=== PATIENT | female | born 1990 | race Caucasian/White ===

== ENCOUNTER → 2017-09-09 | Outpatient (CLI) | payer OTHER ==
[2017-09-09 18:09] LABS: BASO % 0.3 % (0.0-1.0); EOS # 0.3 10^3/uL (0.0-0.50); EOS % 3.1 % (0.0-3.0); HEMOGLOBIN 12.7 g/dl (12.0-16.0); IMMATURE GRANULOCYTE % 0.3 % (0-3.0); LYMPH # 2.7 10^3/uL (1.5-6.5); LYMPH % 28.2 % (24.0-44.0); MEAN CORPUSCULAR HEMOGLOBIN 30.7 pg (27.0-33.0); MEAN CORPUSCULAR HGB CONC 33.4 g/dl (32.0-36.5); MEAN CORPUSCULAR VOLUME 91.8 fl (80.0-96.0); MONO # 0.7 10^3/uL (0.0-0.8); MONO % 7.6 % (0.0-5.0); NEUTROPHILS # 5.7 10^3/uL (1.8-7.7); NEUTROPHILS % 60.5 % (36.0-66.0); PLATELET COUNT, AUTOMATED 268 10^3/uL (150-450); RED BLOOD COUNT 4.14 10^6/uL (4.00-5.40); RED CELL DISTRIBUTION WIDTH 13.5 % (11.5-14.5); WHITE BLOOD COUNT 9.5 10^3/uL (4.0-10.0)
[2017-09-09 18:38] LABS: ALT/SGPT 17 U/L (12-78); AST/SGOT 7 U/L (7-37); BILIRUBIN,TOTAL 0.2 MG/DL (0.2-1.0); CREATININE FOR GFR 0.57 MG/DL (0.55-1.30); GLOMERULAR FILTRATION RATE > 60.0 (>60); LDH LACTATE DEHYDROGENASE 145 U/L (84-246); TOTAL PROTEIN,RANDOM URINE 12.1 MG/DL (0.0-12.0); URIC ACID 4.2 MG/DL (2.6-6.0)
[2017-09-09 20:10] LABS: CHLAMYDIA DNA AMPLIFICATION NEGATIVE (NEGATIVE); GC DNA AMPLIFICATION NEGATIVE (NEGATIVE)
[2017-09-11 10:22] LABS: RUBELLA IgG QUALITATIVE IMMUNE (IMMUNE)
[2017-09-11 10:40] LABS: HBsAg Prenatal NEGATIVE (NEGATIVE)
[2017-09-11 10:51] LABS: HEPATITIS C VIRUS ABY INDEX < 0.0 INDEX (<0.8)
[2017-09-11 10:52] LABS: HIV 1&2 SCREEN CENTAUR NEGATIVE (NEGATIVE)
== END ==
LOC: M WUC 15:26
DX: Z36.89 Encounter for other specified antenatal screening (principal); Z3A.10 10 weeks gestation of pregnancy
CPT/HCPCS: 84460

== ENCOUNTER → 2017-11-05 | Outpatient (CLI) | payer OTHER | LOC: M SMT 12:58 | DX: Z34.82 Encounter for supervision of other normal pregnancy, second trimester (principal); Z36.89 Encounter for other specified antenatal screening; Z3A.18 18 weeks gestation of pregnancy | CPT/HCPCS: 76811 ==

== ENCOUNTER → 2017-11-30 | Outpatient (CLI) | payer OTHER | LOC: M SMT 14:26 | DX: Z34.82 Encounter for supervision of other normal pregnancy, second trimester (principal); Z3A.21 21 weeks gestation of pregnancy | CPT/HCPCS: 76816 ==

== ENCOUNTER → 2018-01-01 | Outpatient (CLI) | payer OTHER ==
[2018-01-01 17:18] LABS: HEMATOCRIT 33.8 % (36.0-47.0); HEMOGLOBIN 11.1 g/dl (12.0-15.5); MEAN CORPUSCULAR HEMOGLOBIN 31.3 pg (27.0-33.0); MEAN CORPUSCULAR HGB CONC 32.8 g/dl (32.0-36.5); MEAN CORPUSCULAR VOLUME 95.2 fl (80.0-96.0); PLATELET COUNT, AUTOMATED 258 10^3/uL (150-450); RED BLOOD COUNT 3.55 10^6/uL (4.00-5.40); RED CELL DISTRIBUTION WIDTH 13.8 % (11.5-14.5); WHITE BLOOD COUNT 13.3 10^3/uL (4.0-10.0)
[2018-01-01 17:28] LABS: GLUCOSE CHALLENGE TEST 1 HOUR 110 MG/DL (LESS THAN 140)
== END ==
LOC: M WUC 14:38
DX: Z34.82 Encounter for supervision of other normal pregnancy, second trimester (principal); Z36.89 Encounter for other specified antenatal screening
CPT/HCPCS: 82950

== ENCOUNTER 2018-02-08 13:04 | Inpatient (IN) | payer OTHER ==
[2018-02-08] MEDS: BETAMETHASONE SOLUSPAN 6MG/ML INJ 5ML (J0702) IM (15:03)
[2018-02-08] MEDS: AZITHROMYCIN 250 MG TAB PO (15:03)
[2018-02-08] MEDS: AMPICILLIN SOD 2 GM in D5W MINI-BAG PLUS 100 ML IV ×2 (15:26→20:00)
[2018-02-08 15:41] LABS: HEMATOCRIT 35.8 % (36.0-47.0); MEAN CORPUSCULAR HEMOGLOBIN 31.1 pg (27.0-33.0); MEAN CORPUSCULAR HGB CONC 33.5 g/dl (32.0-36.5); MEAN CORPUSCULAR VOLUME 92.7 fl (80.0-96.0); PLATELET COUNT, AUTOMATED 230 10^3/uL (150-450); RED BLOOD COUNT 3.86 10^6/uL (4.00-5.40); RED CELL DISTRIBUTION WIDTH 13.7 % (11.5-14.5); WHITE BLOOD COUNT 12.2 10^3/uL (4.0-10.0)
[2018-02-08] MEDS: LACTATED RINGER'S 1000 ML IV (18:18)
[2018-02-08] MEDS ORDERED: LR 1,000 ML IV (19:00)
[2018-02-09] MEDS: AMPICILLIN SOD 2 GM in D5W MINI-BAG PLUS 100 ML IV ×4 (02:00→19:52)
[2018-02-09] MEDS: BETAMETHASONE SOLUSPAN 6MG/ML INJ 5ML (J0702) IM (14:40)
[2018-02-09] MEDS: LR 1,000 ML IV (21:30)
[2018-02-10] MEDS: AMPICILLIN SOD 2 GM in D5W MINI-BAG PLUS 100 ML IV ×2 (01:36→08:03)
[2018-02-10] MEDS: PRENATAL VITAMINS CHEWABLE TABLET PO (08:03)
[2018-02-10] MEDS: AMOXICILLIN 500 MG CAP PO ×2 (14:03→22:10)
[2018-02-11] MEDS: AMOXICILLIN 500 MG CAP PO ×3 (05:45→21:31)
[2018-02-11] MEDS: PRENATAL VITAMINS CHEWABLE TABLET PO (08:48)
[2018-02-12] MEDS: AMOXICILLIN 500 MG CAP PO ×3 (05:48→21:51)
[2018-02-12] MEDS: PRENATAL VITAMINS CHEWABLE TABLET PO (08:57)
[2018-02-12] MEDS ORDERED: SLF 3 ML SYR IV (19:15)
[2018-02-12] MEDS: SLF 3 ML SYR IV (21:52)
[2018-02-13] MEDS: SLF 3 ML SYR IV ×2 (05:02→14:00)
[2018-02-13] MEDS: AMOXICILLIN 500 MG CAP PO ×3 (05:02→21:11)
[2018-02-13] MEDS: PRENATAL VITAMINS CHEWABLE TABLET PO (08:19)
[2018-02-14] MEDS: AMOXICILLIN 500 MG CAP PO ×4 (05:31→21:49)
[2018-02-14] MEDS: PRENATAL VITAMINS CHEWABLE TABLET PO (08:50)
[2018-02-15] MEDS: AMOXICILLIN 500 MG CAP PO ×3 (05:40→22:33)
[2018-02-15] MEDS: PRENATAL VITAMINS CHEWABLE TABLET PO (09:00)
[2018-02-16] MEDS: AMOXICILLIN 500 MG CAP PO ×3 (05:51→22:06)
[2018-02-16] MEDS: PRENATAL VITAMINS CHEWABLE TABLET PO (08:33)
[2018-02-17] MEDS: BUTORPHANOL 2 MG/ML INJ (J0595) IV (00:26)
[2018-02-17] MEDS: PROMETHAZINE INJ 25 MG/ML VIAL (J2550) IV (00:26)
[2018-02-17] MEDS: AMOXICILLIN 500 MG CAP PO ×2 (05:25→14:54)
[2018-02-17] MEDS: PRENATAL VITAMINS CHEWABLE TABLET PO (08:37)
[2018-02-17] MEDS: DOCUSATE SODIUM 100 MG CAP PO (20:46)
[2018-02-17] MEDS: LR 1,000 ML IV (23:45)
[2018-02-18] MEDS ORDERED: hydrOXYzine 50 MG TAB PO (02:15)
[2018-02-18] MEDS ORDERED: OXYTOCIN 30 UNITS IN 0.9% NaCl 500ML IV BAG (J2590) As Ordered (03:41)
[2018-02-18] MEDS ORDERED: FENTANYL 2MCG/ML ROPIVACAINE 0.2% IN 0.9% NACL 200ML IVBAG As Ordered (03:41)
[2018-02-18 03:59] LABS: HEMATOCRIT 36.2 % (36.0-47.0); HEMOGLOBIN 12.1 g/dl (12.0-15.5); MEAN CORPUSCULAR HEMOGLOBIN 31.1 pg (27.0-33.0); MEAN CORPUSCULAR HGB CONC 33.4 g/dl (32.0-36.5); MEAN CORPUSCULAR VOLUME 93.1 fl (80.0-96.0); PLATELET COUNT, AUTOMATED 248 10^3/uL (150-450); RED BLOOD COUNT 3.89 10^6/uL (4.00-5.40); RED CELL DISTRIBUTION WIDTH 13.8 % (11.5-14.5)
[2018-02-18 04:46] LABS: CORD GAS ABE A -3.9; CORD GAS HCO3 A 24.4 MEQ/L; CORD GAS O2 SAT A 50.8 %; CORD GAS PCO2 A 57.7 mmHg; CORD GAS PH A 7.244 UNITS; CORD GAS SBC A 20.1 MEQ/L; CORD GAS TCO2 A 26.2 MEQ/L
[2018-02-18 04:47] LABS: CORD GAS ABE V -3.5; CORD GAS HCO3 V 22.6 MEQ/L; CORD GAS O2 SAT V 86.9 %; CORD GAS PCO2 V 44.1 mmHg; CORD GAS PH V 7.327 UNITS; CORD GAS PO2 V 42.1 mmHg; CORD GAS SBC V 21.4 MEQ/L; CORD GAS TCO2 V 23.9 MEQ/L
[2018-02-18] MEDS: OXYTOCIN DRIP 30 UNITS in APPROPRIATE DILUENT 1 EA IV (04:53)
[2018-02-18] MEDS ORDERED: ACETAMINOPHEN 500 MG TAB PO (05:00)
[2018-02-18] MEDS ORDERED: ANUSOL HC CREAM 30GM TOP (05:00)
[2018-02-18] MEDS ORDERED: METHYLERGONOVINE MALEATE 0.2 MG TAB PO (05:00)
[2018-02-18] MEDS: LIDOCAINE 1% MDV 20ML VIAL INFIL (05:00)
[2018-02-18] MEDS ORDERED: DIBUCAINE 1% OINTMENT 30GM TOP (05:00)
[2018-02-18] MEDS: IBUPROFEN 800 MG TAB PO (12:09)
[2018-02-18] MEDS: MEASLES,MUMPS,RUBELLA VACCINE INJ (MMR-II) (90707) SC (13:20)
[2018-02-18] MEDS: RHOGAM 300 MCG (1500 IU) INJ (J2790) IM (13:20)
[2018-02-19] MEDS: DOCUSATE SODIUM 100 MG CAP PO ×2 (09:41→21:00)
[2018-02-19] MEDS: PRENATAL VITAMINS CHEWABLE TABLET PO (09:41)
[2018-02-20] MEDS: PRENATAL VITAMINS CHEWABLE TABLET PO (09:08)
[2018-02-20] MEDS: DOCUSATE SODIUM 100 MG CAP PO (09:08)
[2018-02-20] MEDS: ADACEL/BOOSTRIX VACCINE (DIPHTH/PERTUSS/ACELL/TETANUS)0.5ML SYR (90715) IM (11:25)
== END 2018-02-20 11:40 | disposition home or self-care (01) | DRG 775 ==
LOC: M LDO 13:04 → M OBS 02-09 09:51 → M LDI 02-17 23:11 → M OBS 02-18 06:45 → M LDI 13:46
PROVIDERS: Specialist
PROC: 0HQ9XZZ Repair Perineum Skin, External Approach (ICD-10-PCS; 2018-02-17)
PROC: 10E0XZZ Delivery of Products of Conception, External Approach (ICD-10-PCS; principal; 2018-02-18)
DX: O42.113 Preterm premature rupture of membranes, onset of labor more than 24 hours following rupture, third trimester (principal); Z3A.32 32 weeks gestation of pregnancy; O69.82X0 Labor and delivery complicated by other cord entanglement, without compression, not applicable or unspecified; O70.0 First degree perineal laceration during delivery; Z37.0 Single live birth

== ENCOUNTER → 2019-02-21 | Outpatient (REF) | payer OTHER ==
[~2019-02-21] MED LIST: IBUP-1114 PO; MAPA500T2 PO; PRENTAB9 PO
[2019-02-21 19:41] LABS: CHLAMYDIA DNA AMPLIFICATION NEGATIVE (NEGATIVE); GC DNA AMPLIFICATION NEGATIVE (NEGATIVE)
[2019-02-23 14:07] LABS: HPV HYBRID CAPTURE II Negative (Negative)
== END ==
LOC: M LAB REF 16:55
PROVIDERS: ATTEND Family Medicine
DX: Z12.4 Encounter for screening for malignant neoplasm of cervix (principal); Z91.89 Other specified personal risk factors, not elsewhere classified
CPT/HCPCS: 87070; 87077; 87186; 87491; 87591; 87624; G0123

== ENCOUNTER → 2020-07-09 | Outpatient (CLI) | payer SELFPAY | LOC: M LABSMTC 16:30 | PROVIDERS: ATTEND Pediatrics | DX: Z20.828 Contact with and (suspected) exposure to other viral communicable diseases (principal) ==

== ENCOUNTER → 2021-05-24 | Outpatient (CLI) | payer OTHER ==
--- NOTE | 2021-05-24 16:51 | REPVR ---
PROCEDURE INFORMATION: Exam: MR Head Without Contrast Exam date and time: 05/24/2021 2:20 PM Age: 31 years old Clinical indication: Pain; Other: Occular; Additional info: RT occular eye pain, visual disturbance, R/O ms TECHNIQUE: Imaging protocol: MR of the head without contrast. COMPARISON: No relevant prior studies available. FINDINGS: Brain: No acute hemorrhage or acute territorial infarct. For age there are mild diffuse involutional changes in the brain. Scattered foci of T2 and FLAIR hyperintensity most pronounced in the right parietooccipital lobe posteriorly are nonspecific. The classic Charcot pattern for multiple sclerosis is not identified today. Cerebral ventricles: Normal. No ventriculomegaly. Bones/joints: The marrow signal is maintained on the T1 weighted images Paranasal sinuses: Paranasal sinus disease most pronounced in the right maxillary sinus. Mastoid air cells: The mastoids are well aerated. Orbital cavity: The orbits are intact and are evaluated separately today. Soft tissues: Unremarkable. Other vasculature: The expected vascular flow voids are present centrally. Other findings: Limited noncontrast exam. IMPRESSION: 1. No acute abnormality. 2. Mild involutional change and nonspecific scattered T2 and FLAIR hyperintensities in the supratentorial white matter. The patient may benefit from contrast-enhanced imaging. Electronically signed by: Vicente Andrea On 05/24/2021 16:50:53 PM
--- NOTE | 2021-05-24 16:55 | REPVR ---
PROCEDURE INFORMATION: Exam: MR Orbit Without Contrast Exam date and time: 05/24/2021 2:09 PM Age: 31 years old Clinical indication: Eye pain; Bilateral; Additional info: RT occular eye pain, visual disturbance, R/O ms TECHNIQUE: Imaging protocol: MR Orbit was performed without contrast. COMPARISON: No relevant prior studies available. FINDINGS: Orbital cavity: The orbits are intact. No mass in the conal spaces. Paranasal sinuses: Paranasal sinus disease most pronounced in the right maxillary sinus. Brain: The brain is evaluated separately today. Bones/joints: Best seen on the coronal T2 weighted images is mild thickening and increased T2 signal in the optic nerve on the right in comparison to the left. The possibly of optic neuritis might be considered here. Soft tissues: Unremarkable. Other findings: Limited noncontrast exam. IMPRESSION: Findings suggestive of potential optic neuritis on the right in comparison to the left. Contrast-enhanced imaging may prove helpful. Electronically signed by: Vicente Andrea On 05/24/2021 16:55:09 PM
--- NOTE | 2021-05-31 17:23 | REPVR ---
PROCEDURE INFORMATION: Exam: MR Head Without and With Contrast Exam date and time: 05/31/2021 2:38 PM Age: 31 years old Clinical indication: Visual disturbance; Additional info: RT occular eye pain, visual disturbance, R/O ms TECHNIQUE: Imaging protocol: MR of the head without and with intravenous contrast. Contrast material: PROHANCE; Contrast volume: 20 ml; Contrast route: INTRAVENOUS (IV); COMPARISON: MRI-Brain without Contrast 05/24/2021 2:36 PM FINDINGS: Brain: Small scattered nonspecific T2/FLAIR hyperintensities of the periventricular and deep subcortical white matter, two prominent lesions in the right parietal and left frontal periventricular white matter demonstrating prominent enhancement. No intracranial hemorrhage or extra-axial fluid collection. No evidence of mass effect or midline shift. No restricted diffusion to suggest acute infarct. Cerebral ventricles: No ventriculomegaly. Bones/joints: Unremarkable. Mastoid air cells: No mastoid effusion. Soft tissues: Unremarkable. IMPRESSION: Small scattered nonspecific T2/FLAIR hyperintensities of the periventricular and deep subcortical white matter, two prominent lesions in the right parietal and left frontal periventricular white matter demonstrating prominent enhancement. Overall findings are most concerning for active demyelinating disease such as multiple sclerosis. Recommend neurology consultation. Electronically signed by: Dioni Castellanos On 05/31/2021 17:22:59 PM
--- NOTE | 2021-05-31 17:26 | REPVR ---
PROCEDURE INFORMATION: Exam: MR Orbit Without and With Contrast Exam date and time: 05/31/2021 2:38 PM Age: 31 years old Clinical indication: Other: RT occular eye pain; Additional info: RT occular eye pain, visual disturbance, R/O ms TECHNIQUE: Imaging protocol: MR Orbit was performed without and with contrast. Contrast material: PROHANCE; Contrast volume: 20 ml; Contrast route: INTRAVENOUS (IV); COMPARISON: MRI-Orbits, Face and Neck W/O 05/24/2021 2:36 PM FINDINGS: Orbital cavity: Asymmetric prominent T2 hyperintensities and enhancement involving the right optic nerve, highly concerning for right optic neuritis. Globes are normal. Intraconal and extraconal fat are normal. Extraoccular muscles are normal. Vascular structures are unremarkable. Paranasal sinuses: Unremarkable. No air-fluid levels. Soft tissues: Unremarkable. IMPRESSION: Asymmetric prominent T2 hyperintensities and enhancement involving the right optic nerve, highly concerning for right optic neuritis. Please refer to additional findings performed on concurrent MRI brain which are concerning for demyelinating disease such as multiple sclerosis. Recommend neurology consultation. Electronically signed by: Dioni Castellanos On 05/31/2021 17:25:37 PM
== END ==
LOC: M PLARAD 14:06
PROVIDERS: ATTEND Family Medicine
DX: H57.11 Ocular pain, right eye (principal); H53.8 Other visual disturbances

== ENCOUNTER → 2021-05-31 | Outpatient (CLI) | payer OTHER ==
[~2021-05-31] MED LIST changes: +PROHANCE 279.3MG/ML 15ML VIAL As Ordered ONE; +PROHANCE 279.3MG/ML 5ML VIAL As Ordered ONE
== END ==
LOC: M RAD 12:16
PROVIDERS: ATTEND Family Medicine
DX: H57.11 Ocular pain, right eye (principal); H53.8 Other visual disturbances
CPT/HCPCS: 70543; 70553; A9576

== ENCOUNTER → 2021-08-29 | Outpatient (CLI) | payer OTHER ==
[~2021-08-29] MED LIST changes: -PROHANCE 279.3MG/ML 15ML VIAL As Ordered ONE; -PROHANCE 279.3MG/ML 5ML VIAL As Ordered ONE
== END ==
LOC: M PLAIMG 13:39
PROVIDERS: ATTEND Psychiatry & Neurology Neurology
DX: G35 Multiple sclerosis (principal); Z53.8 Procedure and treatment not carried out for other reasons

== ENCOUNTER → 2021-09-04 | Outpatient (CLI) | payer OTHER ==
[2021-09-04 14:07] LABS: BASO % 0.2 % (0.0-1.0); EOS # 0.1 10^3/uL (0.0-0.5); EOS % 1.2 % (0.0-3.0); HEMATOCRIT 40.4 % (36.0-47.0); HEMOGLOBIN 13.4 g/dl (12.0-15.5); LYMPH # 1.9 10^3/uL (1.5-5.0); LYMPH % 20.3 % (24.0-44.0); MEAN CORPUSCULAR HEMOGLOBIN 30.9 pg (27.0-33.0); MEAN CORPUSCULAR HGB CONC 33.2 g/dl (32.0-36.5); MEAN CORPUSCULAR VOLUME 93.1 fl (80.0-96.0); MONO # 0.6 10^3/uL (0.0-0.8); NEUTROPHILS # 6.8 10^3/uL (1.5-8.5); PLATELET COUNT, AUTOMATED 263 10^3/uL (150-450); RED BLOOD COUNT 4.34 10^6/uL (4.00-5.40); WHITE BLOOD COUNT 9.4 10^3/uL (4.0-10.0)
[2021-09-04 15:26] LABS: GC DNA AMPLIFICATION NEGATIVE (NEGATIVE)
[2021-09-04 15:27] LABS: HEPATITIS C VIRUS ABY INDEX < 0.0 INDEX (<0.8); HIV 1&2 SCREEN CENTAUR NEGATIVE (NEGATIVE)
== END ==
LOC: M PLALAB 09:22
PROVIDERS: ATTEND Obstetrics & Gynecology
DX: Z3A.12 12 weeks gestation of pregnancy (principal)

== ENCOUNTER → 2021-09-24 | Outpatient (CLI) | payer OTHER | LOC: M PLALAB 13:33 | PROVIDERS: ATTEND Specialist | DX: Z34.81 Encounter for supervision of other normal pregnancy, first trimester (principal) ==

== ENCOUNTER 2021-10-04 10:01 | Emergency (ER) | payer OTHER ==
[~2021-10-04] VITALS: Ht 165.1 cm; Wt 105.8 kg
[2021-10-04 11:53] LABS: BASO % 0.2 % (0.0-1.0); EOS # 0.1 10^3/uL (0.0-0.5); EOS % 1.1 % (0.0-3.0); HEMATOCRIT 38.7 % (36.0-47.0); HEMOGLOBIN 12.9 g/dl (12.0-15.5); LYMPH # 1.8 10^3/uL (1.5-5.0); LYMPH % 19.4 % (24.0-44.0); MEAN CORPUSCULAR HEMOGLOBIN 30.6 pg (27.0-33.0); MEAN CORPUSCULAR HGB CONC 33.3 g/dl (32.0-36.5); MEAN CORPUSCULAR VOLUME 91.9 fl (80.0-96.0); MONO # 0.5 10^3/uL (0.0-0.8); MONO % 5.4 % (2.0-8.0); NEUTROPHILS # 6.7 10^3/uL (1.5-8.5); NEUTROPHILS % 73.2 % (36.0-66.0); PLATELET COUNT, AUTOMATED 249 10^3/uL (150-450); RED BLOOD COUNT 4.21 10^6/uL (4.00-5.40); WHITE BLOOD COUNT 9.1 10^3/uL (4.0-10.0)
[2021-10-04 12:15] LABS: BLOOD UREA NITROGEN 7 MG/DL (7-18); CALCIUM LEVEL 9.3 MG/DL (8.5-10.1); CARBON DIOXIDE LEVEL 26 MEQ/L (21-32); CHLORIDE LEVEL 111 MEQ/L (98-107); CREATININE FOR GFR 0.52 MG/DL (0.55-1.30); GLOMERULAR FILTRATION RATE > 60.0 (>60); GLUCOSE, FASTING 88 MG/DL (70-100); SODIUM LEVEL 141 MEQ/L (136-145)
[2021-10-04 14:30] VITALS: BP 123/66
== END 2021-10-04 14:31 | disposition home or self-care (01) ==
LOC: M ED 10:01
DX: S39.011A Strain of muscle, fascia and tendon of abdomen, initial encounter (principal); W00.0XXA Fall on same level due to ice and snow, initial encounter; Y92.89 Other specified places as the place of occurrence of the external cause; Z3A.16 16 weeks gestation of pregnancy; Z88.2 Allergy status to sulfonamides

== ENCOUNTER → 2021-10-24 | Outpatient (CLI) | payer OTHER | LOC: M WHC 14:24 | PROVIDERS: ATTEND Specialist | DX: Z34.82 Encounter for supervision of other normal pregnancy, second trimester (principal) ==

== ENCOUNTER → 2022-01-08 | Outpatient (CLI) | payer OTHER ==
[2022-01-08 13:42] LABS: HEMATOCRIT 36.2 % (36.0-47.0); HEMOGLOBIN 11.7 g/dl (12.0-15.5); MEAN CORPUSCULAR HEMOGLOBIN 31.6 pg (27.0-33.0); MEAN CORPUSCULAR HGB CONC 32.3 g/dl (32.0-36.5); MEAN CORPUSCULAR VOLUME 97.8 fl (80.0-96.0); WHITE BLOOD COUNT 8.9 10^3/uL (4.0-10.0)
[2022-01-08 15:21] LABS: GC DNA AMPLIFICATION NEGATIVE (NEGATIVE)
== END ==
LOC: M PLALAB 09:06
PROVIDERS: ATTEND Specialist
DX: Z36.89 Encounter for other specified antenatal screening (principal)

== ENCOUNTER → 2022-01-13 | Outpatient (CLI) | payer OTHER | LOC: M WHC 12:58 | PROVIDERS: ATTEND Specialist | DX: Z34.82 Encounter for supervision of other normal pregnancy, second trimester (principal) ==

== ENCOUNTER → 2022-01-27 | Outpatient (REF) | payer OTHER | LOC: M SFHCWAGY 12:56 | PROVIDERS: ATTEND Obstetrics & Gynecology | DX: O44.43 Low lying placenta NOS or without hemorrhage, third trimester (principal) ==

== ENCOUNTER → 2022-02-11 | Outpatient (CLI) | payer OTHER | LOC: M WHC 14:50 | PROVIDERS: ATTEND Obstetrics & Gynecology | DX: Z03.72 Encounter for suspected placental problem ruled out (principal); O44.43 Low lying placenta NOS or without hemorrhage, third trimester; Z3A.35 35 weeks gestation of pregnancy ==

== ENCOUNTER → 2022-02-19 | Outpatient (REF) | payer OTHER | LOC: M PLALAB 10:29 | PROVIDERS: ATTEND Obstetrics & Gynecology | DX: Z36.85 Encounter for antenatal screening for Streptococcus B (principal) ==

== ENCOUNTER 2022-03-01 12:33 | Inpatient (IN) | payer OTHER ==
[2022-03-01] VITALS (8 sets, daily range): BP systolic 96–144; BP diastolic 59–88
[~2022-03-01] VITALS: Ht 165.1 cm; Wt 114.7 kg
[2022-03-01] MEDS ORDERED: PRENTAB9 PO (13:03)
[2022-03-01] MEDS ORDERED: TUMS500C PO (13:04)
[2022-03-01] MEDS ORDERED: HOME MED LIST COMPLETE! XX SCH (13:05)
[2022-03-01 16:34] LABS: BASO % 0.2 % (0.0-1.0); EOS # 0.2 10^3/uL (0.0-0.5); HEMATOCRIT 37.2 % (36.0-47.0); HEMOGLOBIN 12.3 g/dl (12.0-15.5); LYMPH # 2.6 10^3/uL (1.5-5.0); LYMPH % 17.8 % (24.0-44.0); MEAN CORPUSCULAR HEMOGLOBIN 30.5 pg (27.0-33.0); MEAN CORPUSCULAR HGB CONC 33.1 g/dl (32.0-36.5); MEAN CORPUSCULAR VOLUME 92.3 fl (80.0-96.0); MONO # 0.7 10^3/uL (0.0-0.8); MONO % 5.1 % (2.0-8.0); NEUTROPHILS # 10.8 10^3/uL (1.5-8.5); NEUTROPHILS % 74.9 % (36.0-66.0); PLATELET COUNT, AUTOMATED 252 10^3/uL (150-450); RED BLOOD COUNT 4.03 10^6/uL (4.00-5.40); WHITE BLOOD COUNT 14.4 10^3/uL (4.0-10.0)
[2022-03-01] MEDS: miSOPROStol 50MCG 1/2 TABLET PO SCH (20:35)
[2022-03-02] VITALS (32 sets, daily range): BP systolic 100–160; BP diastolic 53–90
[2022-03-02] MEDS: miSOPROStol 50MCG 1/2 TABLET PO SCH (00:36)
[2022-03-02] MEDS ORDERED: BUTORPHANOL 2 MG/ML INJ (J0595) IV ONE (01:20)
[2022-03-02] MEDS ORDERED: PROMETHAZINE 25MG/ML 1ML VIAL IV ONE (01:20)
[2022-03-02] MEDS ORDERED: FENTANYL 2MCG/ML ROPIVACAINE 0.2% IN 0.9% NACL 100ML IVBAG As Ordered ONE (02:20)
[2022-03-02] MEDS ORDERED: EPIDURAL/PCA KEYS XX PRN (02:40)
[2022-03-02] MEDS ORDERED: NALOXONE INJ 0.4MG/1ML VIAL (J2310 PER 1MG) IV PRN (02:40)
[2022-03-02] MEDS ORDERED: LR 500 ML IV PRN (02:40)
[2022-03-02] MEDS ORDERED: ONDANSETRON 4MG 2ML VIAL IV PRN (02:40)
[2022-03-02] MEDS ORDERED: diphenhydrAMINE 50MG/ML VIAL (J1200) IV PRN (02:40)
[2022-03-02] MEDS ORDERED: ePHEDrine SULFATE 25 MG/5 ML(5MG/ML) SYRINGE IVP PRN (02:40)
[2022-03-02] MEDS ORDERED: FENTANYL/ROPIVACAINE/NACL BAG 100 ML EPIDURAL SCH ×2 (02:40)
[2022-03-02] MEDS ORDERED: OXYTOCIN DRIP 30 UNITS in IV 1 EA IV SCH ×2 (03:00→04:30)
[2022-03-02] MEDS ORDERED: ACETAMINOPHEN TAB 650MG DOSE (2X325MG) PO PRN (04:30)
[2022-03-02] MEDS ORDERED: METHYLERGONOVINE MALEATE 0.2 MG TAB PO PRN (04:30)
[2022-03-02] MEDS ORDERED: DIBUCAINE 1% OINTMENT 30GM TOP PRN (04:30)
[2022-03-02] MEDS ORDERED: IBUPROFEN 600MG TAB PO PRN (04:30)
[2022-03-02] MEDS ORDERED: RHOGAM 300 MCG (1500 IU) INJ (J2790) IM SCH (04:30)
[2022-03-02] MEDS ORDERED: ACETAMINOPHEN 500 MG TAB PO PRN (04:30)
[2022-03-02 04:44] LABS: CORD GAS ABE V -3.5; CORD GAS HCO3 V 21.9 MEQ/L; CORD GAS O2 SAT V 75.2 %; CORD GAS PCO2 V 40.9 mmHg; CORD GAS PH V 7.347 UNITS; CORD GAS PO2 V 31.2 mmHg; CORD GAS SBC V 21.1 MEQ/L; CORD GAS TCO2 V 23.2 MEQ/L
[2022-03-02 04:45] LABS: CORD GAS ABE A -3.3; CORD GAS HCO3 A 23.5 MEQ/L; CORD GAS O2 SAT A 68.5 %; CORD GAS PCO2 A 49.5 mmHg; CORD GAS PH A 7.295 UNITS; CORD GAS PO2 A 30.9 mmHg; CORD GAS SBC A 21.1 MEQ/L; CORD GAS TCO2 A 25.1 MEQ/L
[2022-03-02] MEDS: PRENATAL VITAMINS CHEWABLE TABLET PO SCH (09:13)
[2022-03-02] MEDS: IBUPROFEN 800 MG TAB PO PRN (20:05)
[2022-03-02] MEDS: DOCUSATE SODIUM 100MG CAPSULE PO PRN (20:05)
[2022-03-03 06:00] VITALS: BP 131/81
[2022-03-03] MEDS: PRENATAL VITAMINS CHEWABLE TABLET PO SCH (07:36)
[2022-03-03] MEDS: IBUPROFEN 800 MG TAB PO PRN (07:38)
[2022-03-03 17:59] VITALS: BP 135/76
[2022-03-03] MEDS: DOCUSATE SODIUM 100MG CAPSULE PO PRN (20:16)
[2022-03-04 06:00] VITALS: BP 124/72
[2022-03-04] MEDS: PRENATAL VITAMINS CHEWABLE TABLET PO SCH (08:24)
[2022-03-04] MEDS ORDERED: ACET-683 PO (08:38)
[2022-03-04] MEDS ORDERED: IBUP80TA PO (08:38)
[2022-03-04] MEDS ORDERED: MEASLES,MUMPS,RUBELLA VACCINE INJ (MMR-II) (90707) SC.IMMUN ONE (09:00)
== END 2022-03-04 11:39 | disposition home or self-care (01) | DRG 560 ==
LOC: M LDO 12:33 → M LDI 14:40 → M OBS 03-02 08:16
PROVIDERS: ADMIT Obstetrics & Gynecology; ATTEND Obstetrics & Gynecology
PROC: 3E0P7GC Introduction of Other Therapeutic Substance into Female Reproductive, Via Natural or Artificial Opening (ICD-10-PCS; 2022-03-01)
PROC: 10E0XZZ Delivery of Products of Conception, External Approach (ICD-10-PCS; principal; 2022-03-02)
DX: O42.02 Full-term premature rupture of membranes, onset of labor within 24 hours of rupture (principal); Z3A.37 37 weeks gestation of pregnancy; Z37.0 Single live birth

== ENCOUNTER → 2022-05-26 | Outpatient (CLI) | payer OTHER ==
[~2022-05-26] MED LIST changes: +ACET-683 PO; +IBUP80TA PO; +TUMS500C PO
== END ==
LOC: M PLAIMG 09:14
PROVIDERS: ATTEND Psychiatry & Neurology Neurology
DX: G35 Multiple sclerosis (principal)

== ENCOUNTER 2022-07-21 12:43 | Inpatient (IN) | payer OTHER ==
[~2022-07-21] VITALS: Ht 165.1 cm; Wt 102.3 kg
[2022-07-21 15:12] LABS: BASO % 0.2 % (0.0-1.0); EOS # 0.1 10^3/uL (0.0-0.5); EOS % 0.7 % (0.0-3.0); HEMATOCRIT 44.1 % (36.0-47.0); HEMOGLOBIN 14.5 g/dl (12.0-15.5); LYMPH # 2.2 10^3/uL (1.5-5.0); LYMPH % 23.7 % (24.0-44.0); MEAN CORPUSCULAR HGB CONC 32.9 g/dl (32.0-36.5); MEAN CORPUSCULAR VOLUME 91.1 fl (80.0-96.0); MONO # 0.6 10^3/uL (0.0-0.8); MONO % 6.6 % (2.0-8.0); NEUTROPHILS # 6.3 10^3/uL (1.5-8.5); NEUTROPHILS % 68.5 % (36.0-66.0); PLATELET COUNT, AUTOMATED 306 10^3/uL (150-450); RED BLOOD COUNT 4.84 10^6/uL (4.00-5.40); WHITE BLOOD COUNT 9.2 10^3/uL (4.0-10.0)
[2022-07-21 15:41] LABS: ALBUMIN 4.4 G/DL (3.2-5.2); ALKALINE PHOSPHATASE 85 U/L (46-116); ALT/SGPT 17 U/L (7.0-40); AST/SGOT 14 U/L (<34); BILIRUBIN,DIRECT 0.1 MG/DL (<0.4); BILIRUBIN,TOTAL 0.3 MG/DL (0.3-1.2); BLOOD UREA NITROGEN 11 MG/DL (9-23); CALCIUM LEVEL 9.2 MG/DL (8.5-10.1); CARBON DIOXIDE LEVEL 23 MMOL/L (20-31); CHLORIDE LEVEL 106 MMOL/L (98-107); CK-MB VALUE MASS < 1.0 NG/ML (<3.6); CPK CREATINE PHOSPHOKINASE 30 U/L (34-145); CREATININE FOR GFR 0.68 MG/DL (0.55-1.30); GLOMERULAR FILTRATION RATE > 60.0 (>60); GLUCOSE, FASTING 78 MG/DL (60-100); MB/CK RELATIVE INDEX 3.33 (< OR =4); SODIUM LEVEL 142 MMOL/L (136-145); TOTAL PROTEIN 7.6 G/DL (5.7-8.2)
[2022-07-21 15:44] LABS: INR 1.02; PROTHROMBIN TIME 13.6 SECONDS (12.5-14.5)
[2022-07-21 15:45] LABS: PARTIAL THROMBOPLASTIN TIME 31.5 SECONDS (24.8-34.2); THYROID STIMULATING HORMONE 1.294 uIU/ML (0.55-4.78)
[2022-07-21 15:46] LABS: FREE T4 1.17 NG/DL (0.89-1.76)
[2022-07-21] MEDS ORDERED: methylPREDNISolone 1,000 MG, VIAL MATE ADAPTER 1 EACH in NS 250 ML IV ONE (16:30)
[2022-07-21 17:46] LABS: RSV AMPLIFICATION NEGATIVE (NEGATIVE)
[2022-07-21] MEDS ORDERED: DEBL1TAB PO (19:16)
[2022-07-21] MEDS ORDERED: HOME MED LIST COMPLETE! XX SCH (19:20)
[2022-07-21 19:22] LABS: BLOOD UREA NITROGEN 9 MG/DL (9-23); CALCIUM LEVEL 8.9 MG/DL (8.5-10.1); CARBON DIOXIDE LEVEL 26 MMOL/L (20-31); CHLORIDE LEVEL 105 MMOL/L (98-107); CREATININE FOR GFR 0.66 MG/DL (0.55-1.30); GLOMERULAR FILTRATION RATE > 60.0 (>60); GLUCOSE, FASTING 79 MG/DL (60-100); SODIUM LEVEL 140 MMOL/L (136-145)
[2022-07-21] MEDS ORDERED: PROHANCE 279.3MG/ML 5ML VIAL As Ordered ONE (22:01)
[2022-07-21] MEDS ORDERED: PROHANCE 279.3MG/ML 15ML VIAL As Ordered ONE (22:02)
[2022-07-22 01:17] LABS: BLOOD UREA NITROGEN 11 MG/DL (9-23); CALCIUM LEVEL 9.4 MG/DL (8.5-10.1); CARBON DIOXIDE LEVEL 27 MMOL/L (20-31); CHLORIDE LEVEL 103 MMOL/L (98-107); GLOMERULAR FILTRATION RATE > 60.0 (>60); GLUCOSE, FASTING 183 MG/DL (60-100); POTASSIUM SERUM 4.3 MMOL/L (3.5-5.1); SODIUM LEVEL 140 MMOL/L (136-145)
[2022-07-22 07:25] LABS: HEMOGLOBIN 15.4 g/dl (12.0-15.5); MEAN CORPUSCULAR HEMOGLOBIN 29.7 pg (27.0-33.0); MEAN CORPUSCULAR HGB CONC 32.8 g/dl (32.0-36.5); MEAN CORPUSCULAR VOLUME 90.7 fl (80.0-96.0); PLATELET COUNT, AUTOMATED 355 10^3/uL (150-450); RED BLOOD COUNT 5.18 10^6/uL (4.00-5.40)
[2022-07-22 08:17] LABS: BLOOD UREA NITROGEN 15 MG/DL (9-23); CALCIUM LEVEL 9.3 MG/DL (8.5-10.1); CARBON DIOXIDE LEVEL 22 MMOL/L (20-31); CHLORIDE LEVEL 105 MMOL/L (98-107); CREATININE FOR GFR 0.63 MG/DL (0.55-1.30); GLOMERULAR FILTRATION RATE > 60.0 (>60); GLUCOSE, FASTING 163 MG/DL (60-100); MAGNESIUM LEVEL 1.8 MG/DL (1.8-2.4); POTASSIUM SERUM 4.4 MMOL/L (3.5-5.1); SODIUM LEVEL 141 MMOL/L (136-145)
[2022-07-22] MEDS: PRENATAL VITAMINS CHEWABLE TABLET PO SCH (09:04)
[2022-07-22] MEDS: ENOXAPARIN 40MG/0.4ML SYRINGE (J1650 PER 10MG) SC SCH (09:04)
[2022-07-22 12:39] LABS: BLOOD UREA NITROGEN 13 MG/DL (9-23); CALCIUM LEVEL 9.7 MG/DL (8.5-10.1); CARBON DIOXIDE LEVEL 25 MMOL/L (20-31); CHLORIDE LEVEL 103 MMOL/L (98-107); CREATININE FOR GFR 0.59 MG/DL (0.55-1.30); GLOMERULAR FILTRATION RATE > 60.0 (>60); GLUCOSE, FASTING 157 MG/DL (60-100); POTASSIUM SERUM 4.2 MMOL/L (3.5-5.1); SODIUM LEVEL 139 MMOL/L (136-145)
[2022-07-22 15:05] VITALS: BP 128/74
[2022-07-22 16:00] VITALS: BP 112/62
[2022-07-22] MEDS ORDERED: methylPREDNISolone 1,000 MG, VIAL MATE ADAPTER 1 EACH in NS 250 ML IV SCH (18:00)
[2022-07-22 18:29] LABS: BLOOD UREA NITROGEN 17 MG/DL (9-23); CALCIUM LEVEL 9.9 MG/DL (8.5-10.1); CARBON DIOXIDE LEVEL 26 MMOL/L (20-31); CHLORIDE LEVEL 104 MMOL/L (98-107); CREATININE FOR GFR 0.63 MG/DL (0.55-1.30); GLOMERULAR FILTRATION RATE > 60.0 (>60); GLUCOSE, FASTING 109 MG/DL (60-100); POTASSIUM SERUM 4.4 MMOL/L (3.5-5.1); SODIUM LEVEL 140 MMOL/L (136-145)
[2022-07-22 20:00] VITALS: BP 126/84
[2022-07-23] VITALS: BP 111/56
[2022-07-23 00:22] LABS: BLOOD UREA NITROGEN 14 MG/DL (9-23); CALCIUM LEVEL 8.8 MG/DL (8.5-10.1); CARBON DIOXIDE LEVEL 24 MMOL/L (20-31); CHLORIDE LEVEL 107 MMOL/L (98-107); CREATININE FOR GFR 0.68 MG/DL (0.55-1.30); GLOMERULAR FILTRATION RATE > 60.0 (>60); GLUCOSE, FASTING 152 MG/DL (60-100); POTASSIUM SERUM 4.2 MMOL/L (3.5-5.1); SODIUM LEVEL 140 MMOL/L (136-145)
[2022-07-23 04:00] VITALS: BP 121/62
[2022-07-23 05:13] LABS: HEMATOCRIT 42.6 % (36.0-47.0); HEMOGLOBIN 14.2 g/dl (12.0-15.5); MEAN CORPUSCULAR HEMOGLOBIN 30.2 pg (27.0-33.0); MEAN CORPUSCULAR HGB CONC 33.3 g/dl (32.0-36.5); MEAN CORPUSCULAR VOLUME 90.6 fl (80.0-96.0); PLATELET COUNT, AUTOMATED 326 10^3/uL (150-450); WHITE BLOOD COUNT 16.5 10^3/uL (4.0-10.0)
[2022-07-23 05:44] LABS: MAGNESIUM LEVEL 1.8 MG/DL (1.8-2.4)
[2022-07-23 05:46] LABS: BLOOD UREA NITROGEN 13 MG/DL (9-23); CALCIUM LEVEL 8.8 MG/DL (8.5-10.1); CARBON DIOXIDE LEVEL 24 MMOL/L (20-31); CHLORIDE LEVEL 107 MMOL/L (98-107); GLOMERULAR FILTRATION RATE > 60.0 (>60); GLUCOSE, FASTING 135 MG/DL (60-100); POTASSIUM SERUM 4.3 MMOL/L (3.5-5.1); SODIUM LEVEL 141 MMOL/L (136-145)
[2022-07-23 08:00] VITALS: BP 125/76
[2022-07-23] MEDS: PRENATAL VITAMINS CHEWABLE TABLET PO SCH (08:22)
[2022-07-23] MEDS: ENOXAPARIN 40MG/0.4ML SYRINGE (J1650 PER 10MG) SC SCH (08:23)
[2022-07-23] MEDS ORDERED: PRED10TA2 PO (10:56)
[2022-07-23 11:47] LABS: BLOOD UREA NITROGEN 14 MG/DL (9-23); CALCIUM LEVEL 9.8 MG/DL (8.5-10.1); CARBON DIOXIDE LEVEL 27 MMOL/L (20-31); CHLORIDE LEVEL 103 MMOL/L (98-107); CREATININE FOR GFR 0.61 MG/DL (0.55-1.30); GLOMERULAR FILTRATION RATE > 60.0 (>60); GLUCOSE, FASTING 147 MG/DL (60-100); POTASSIUM SERUM 3.9 MMOL/L (3.5-5.1); SODIUM LEVEL 140 MMOL/L (136-145)
[2022-07-23 12:00] VITALS: BP 122/67
== END 2022-07-23 12:49 | disposition home or self-care (01) | DRG 43 ==
LOC: M ED 12:43 → M ED INP 16:38 → ENRESERV 07-22 14:08 → M PCU 07-22 15:05
PROVIDERS: ADMIT Internal Medicine; ATTEND Internal Medicine
DX: G35 Multiple sclerosis (principal); R00.1 Bradycardia, unspecified; E66.9 Obesity, unspecified; Z68.37 Body mass index [BMI] 37.0-37.9, adult; Z79.899 Other long term (current) drug therapy; Z88.2 Allergy status to sulfonamides

== ENCOUNTER → 2022-08-22 | Outpatient (CLI) | payer OTHER ==
[~2022-08-22] MED LIST changes: +DEBL1TAB PO; +PRED10TA2 PO
[2022-08-22 19:32] LABS: BASO % 0.3 % (0.0-1.0); EOS # 0.2 10^3/uL (0.0-0.5); EOS % 2.5 % (0.0-3.0); HEMATOCRIT 42.1 % (36.0-47.0); HEMOGLOBIN 13.5 g/dl (12.0-15.5); LYMPH # 3.4 10^3/uL (1.5-5.0); LYMPH % 44.8 % (24.0-44.0); MEAN CORPUSCULAR HEMOGLOBIN 30.3 pg (27.0-33.0); MEAN CORPUSCULAR HGB CONC 32.1 g/dl (32.0-36.5); MEAN CORPUSCULAR VOLUME 94.4 fl (80.0-96.0); MONO # 0.5 10^3/uL (0.0-0.8); MONO % 7.1 % (2.0-8.0); NEUTROPHILS # 3.4 10^3/uL (1.5-8.5); NEUTROPHILS % 44.8 % (36.0-66.0); PLATELET COUNT, AUTOMATED 302 10^3/uL (150-450); RED BLOOD COUNT 4.46 10^6/uL (4.00-5.40); WHITE BLOOD COUNT 7.6 10^3/uL (4.0-10.0)
[2022-08-22 19:53] LABS: ALKALINE PHOSPHATASE 68 U/L (46-116); ALT/SGPT 19 U/L (7.0-40); AST/SGOT 13 U/L (<34); BILIRUBIN,TOTAL 0.3 MG/DL (0.3-1.2); BLOOD UREA NITROGEN 10 MG/DL (9-23); CALCIUM LEVEL 9.3 MG/DL (8.5-10.1); CARBON DIOXIDE LEVEL 30 MMOL/L (20-31); CHLORIDE LEVEL 103 MMOL/L (98-107); CREATININE FOR GFR 0.69 MG/DL (0.55-1.30); GLOMERULAR FILTRATION RATE > 60.0 (>60); GLUCOSE, FASTING 80 MG/DL (60-100); POTASSIUM SERUM 3.7 MMOL/L (3.5-5.1); SODIUM LEVEL 139 MMOL/L (136-145); TOTAL PROTEIN 7.3 G/DL (5.7-8.2)
[2022-08-22 19:54] LABS: TOTAL 25(OH) VITAMIN D 30.5 NG/ML (20.0-100.0)
[2022-08-22 20:12] LABS: HEPATITIS B SURFACE ANTIGEN NEGATIVE (NEGATIVE)
[2022-08-22 20:33] LABS: HEPATITIS B CORE ANTIBODY IGM NEGATIVE (NEGATIVE)
== END ==
LOC: M PLALAB 15:15
PROVIDERS: ATTEND Psychiatry & Neurology Neurology
DX: G35 Multiple sclerosis (principal)

== ENCOUNTER → 2022-11-17 | Outpatient (CLI) | payer OTHER ==
[2022-11-17 18:00] LABS: IMMUNOGLOBULIN M 193.6 MG/DL (50-300)
== END ==
LOC: M PLALAB 16:41
PROVIDERS: ATTEND Psychiatry & Neurology Neurology
DX: G35 Multiple sclerosis (principal)

== ENCOUNTER → 2023-01-20 | Outpatient (REF) | payer OTHER | LOC: M SFHCWAGY 10:11 | PROVIDERS: ATTEND Nurse Practitioner Family | DX: Z12.4 Encounter for screening for malignant neoplasm of cervix (principal) | CPT/HCPCS: 87624; G0123 ==

== ENCOUNTER → 2023-03-09 | Outpatient (CLI) | payer OTHER ==
[2023-03-09 13:41] LABS: BASO % 0.4 % (0.0-1.0); EOS # 0.3 10^3/uL (0.0-0.5); EOS % 2.7 % (0.0-3.0); HEMATOCRIT 42.4 % (36.0-47.0); HEMOGLOBIN 13.6 g/dl (12.0-15.5); LYMPH # 2.2 10^3/uL (1.5-5.0); LYMPH % 22.3 % (24.0-44.0); MEAN CORPUSCULAR HEMOGLOBIN 29.3 pg (27.0-33.0); MEAN CORPUSCULAR HGB CONC 32.1 g/dl (32.0-36.5); MEAN CORPUSCULAR VOLUME 91.4 fl (80.0-96.0); MONO # 0.7 10^3/uL (0.0-0.8); MONO % 7.1 % (2.0-8.0); NEUTROPHILS # 6.6 10^3/uL (1.5-8.5); NEUTROPHILS % 67.1 % (36.0-66.0); PLATELET COUNT, AUTOMATED 312 10^3/uL (150-450); RED BLOOD COUNT 4.64 10^6/uL (4.00-5.40); WHITE BLOOD COUNT 9.8 10^3/uL (4.0-10.0)
[2023-03-09 14:07] LABS: ALBUMIN 3.8 G/DL (3.2-5.2); ALKALINE PHOSPHATASE 67 U/L (46-116); ALT/SGPT 12 U/L (7.0-40); AST/SGOT < 8 U/L (<34); BILIRUBIN,TOTAL 0.3 MG/DL (0.3-1.2); BLOOD UREA NITROGEN 9 MG/DL (9-23); CALCIUM LEVEL 9.4 MG/DL (8.5-10.1); CARBON DIOXIDE LEVEL 28 MMOL/L (20-31); CHLORIDE LEVEL 104 MMOL/L (98-107); CREATININE FOR GFR 0.75 MG/DL (0.55-1.30); GLOMERULAR FILTRATION RATE > 60.0 (>60); GLUCOSE, FASTING 78 MG/DL (60-100); POTASSIUM SERUM 4.6 MMOL/L (3.5-5.1); SODIUM LEVEL 139 MMOL/L (136-145); TOTAL PROTEIN 7.1 G/DL (5.7-8.2)
== END ==
LOC: M PLALAB 12:04
PROVIDERS: ATTEND Psychiatry & Neurology Neurology
DX: G35 Multiple sclerosis (principal)

== ENCOUNTER → 2023-09-14 | Outpatient (CLI) | payer OTHER | LOC: M PLAIMG 12:10 | PROVIDERS: ATTEND Psychiatry & Neurology Neurology | DX: G35 Multiple sclerosis (principal) ==

== ENCOUNTER → 2023-10-08 | Outpatient (CLI) | payer OTHER | LOC: M PLAIMG 14:52 | PROVIDERS: ATTEND Psychiatry & Neurology Neurology | DX: G35 Multiple sclerosis (principal) ==

== ENCOUNTER → 2024-01-04 | Outpatient (CLI) | payer OTHER | LOC: M PLAIMG 13:37 | PROVIDERS: ATTEND Registered Nurse | DX: M25.572 Pain in left ankle and joints of left foot (principal) ==

== ENCOUNTER 2024-02-17 18:40 | Emergency (ER) | payer OTHER ==
[~2024-02-17] VITALS: Ht 165.1 cm; Wt 111.5 kg
[2024-02-18] MEDS ORDERED: IBUP-1022 PO (01:30)
[2024-02-18] MEDS: IBUPROFEN 600MG TAB PO ONE (02:02)
[2024-02-18 02:16] VITALS: BP 145/94; TEMP 97.2; O2SAT 99
== END 2024-02-18 02:19 | disposition home or self-care (01) ==
LOC: M ED 18:40
DX: I80.00 Phlebitis and thrombophlebitis of superficial vessels of unspecified lower extremity (principal); G35 Multiple sclerosis; Z88.2 Allergy status to sulfonamides; Z79.1 Long term (current) use of non-steroidal anti-inflammatories (NSAID); Z79.52 Long term (current) use of systemic steroids; Z79.810 Long term (current) use of selective estrogen receptor modulators (SERMs)

== ENCOUNTER 2024-11-24 01:40 | Emergency (ER) | payer OTHER ==
[~2024-11-24] VITALS: Ht 162.6 cm; Wt 119.6 kg
[~2024-11-24 01:40] MED LIST changes: +IBUP-1022 PO
[2024-11-24 05:20] LABS: BASO % 0.3 % (0.0-1.0); EOS # 0.2 10^3/uL (0.0-0.5); EOS % 1.7 % (0.0-3.0); HEMATOCRIT 43.9 % (36.0-47.0); HEMOGLOBIN 14.6 g/dl (12.0-15.5); LYMPH # 2.4 10^3/uL (1.5-5.0); LYMPH % 20.5 % (24.0-44.0); MEAN CORPUSCULAR HEMOGLOBIN 30.4 pg (27.0-33.0); MEAN CORPUSCULAR HGB CONC 33.3 g/dl (32.0-36.5); MEAN CORPUSCULAR VOLUME 91.3 fl (80.0-96.0); MONO # 0.8 10^3/uL (0.0-0.8); MONO % 6.6 % (2.0-8.0); NEUTROPHILS # 8.1 10^3/uL (1.5-8.5); NEUTROPHILS % 70.6 % (36.0-66.0); PLATELET COUNT, AUTOMATED 293 10^3/uL (150-450); RED BLOOD COUNT 4.81 10^6/uL (4.00-5.40); WHITE BLOOD COUNT 11.5 10^3/uL (4.0-10.0)
[2024-11-24 05:36] LABS: BLOOD UREA NITROGEN 12 MG/DL (9-23); CALCIUM LEVEL 9.1 MG/DL (8.5-10.1); CARBON DIOXIDE LEVEL 27 MMOL/L (20-31); CHLORIDE LEVEL 106 MMOL/L (98-107); CREATININE FOR GFR 0.72 MG/DL (0.55-1.30); GLOMERULAR FILTRATION RATE > 90.0 (>60); GLUCOSE, FASTING 97 MG/DL (60-100); POTASSIUM SERUM 4.1 MMOL/L (3.5-5.1); SODIUM LEVEL 142 MMOL/L (136-145)
[2024-11-24] MEDS: KETOROLAC 30 MG/ML 1ML VIAL IM ONE (08:51)
[2024-11-24] MEDS ORDERED: MEDR4TAB PO (09:02)
[2024-11-24 09:28] VITALS: BP 147/78; TEMP 97; O2SAT 100
== END 2024-11-24 09:34 | disposition home or self-care (01) ==
LOC: M ED 01:40
DX: M79.622 Pain in left upper arm (principal); G35 Multiple sclerosis; Z79.899 Other long term (current) drug therapy; Z88.2 Allergy status to sulfonamides
CPT/HCPCS: 70450; 71045; 80048; 85025; 87486; 87581; 87633; 87798; 96372; 99284; J1885

== ENCOUNTER → 2025-02-01 | Outpatient (REF) | payer OTHER ==
[~2025-02-01] MED LIST changes: +MEDR4TAB PO
[2025-02-03 14:13] LABS: HPV APTIMA Not Detected (Not Detected)
== END ==
LOC: M SFHCWAGY 17:55
PROVIDERS: ATTEND Nurse Practitioner Family
DX: Z12.4 Encounter for screening for malignant neoplasm of cervix (principal)
CPT/HCPCS: 87624; G0123

== ENCOUNTER → 2025-02-17 | Outpatient (CLI) | payer OTHER | LOC: M PLARAD 09:50 | PROVIDERS: ATTEND Psychiatry & Neurology Neurology | DX: G35 Multiple sclerosis (principal) ==

== ENCOUNTER → 2025-03-10 | Outpatient (CLI) | payer OTHER ==
[2025-03-10 14:16] LABS: BASO # 0.0 10^3/uL (0.0-0.2); BASO % 0.4 % (0.0-1.0); EOS # 0.2 10^3/uL (0.0-0.5); EOS % 1.7 % (0.0-3.0); LYMPH # 1.7 10^3/uL (1.5-5.0); LYMPH % 19.0 % (24.0-44.0); MONO # 0.6 10^3/uL (0.0-0.8); MONO % 6.7 % (2.0-8.0); NEUTROPHILS # 6.5 10^3/uL (1.5-8.5); NEUTROPHILS % 71.9 % (36.0-66.0); PLATELET COUNT, AUTOMATED 291 10^3/uL (150-450)
[2025-03-10 14:44] LABS: ALT/SGPT 14 U/L (7.0-40); AST/SGOT 14 U/L (<34); CALCIUM LEVEL 9.5 MG/DL (8.5-10.1); CARBON DIOXIDE LEVEL 28 MMOL/L (20-31); CHLORIDE LEVEL 104 MMOL/L (98-107); CREATININE FOR GFR 0.78 MG/DL (0.55-1.30); GLOMERULAR FILTRATION RATE > 90.0 (>60); POTASSIUM SERUM 4.6 MMOL/L (3.5-5.1); SODIUM LEVEL 144 MMOL/L (136-145)
== END ==
LOC: M PLALAB 10:47
PROVIDERS: ATTEND Psychiatry & Neurology Neurology
DX: G35 Multiple sclerosis (principal)

== ENCOUNTER → 2025-03-20 | Outpatient (CLI) | payer OTHER ==
[2025-03-20 11:55] LABS: CHOLESTEROL LEVEL 133 MG/DL (<200); CHOLESTEROL RISK RATIO 3.23 (<5); LDL CHOLESTEROL 71.3 MG/DL (<100); NON-HDL-C 91.9 MG/DL; TRIGLYCERIDES LEVEL 103 MG/DL (<150)
[2025-03-20 11:58] LABS: FREE T4 1.25 NG/DL (0.89-1.76); THYROID PEROXIDASE ANTIBODY < 28.0 U/ML (<60.0)
[2025-03-20 12:00] LABS: ESTIMATED AVERAGE GLUCOSE 114.0 MG/DL (60-110)
== END ==
LOC: M PLALAB 08:47
PROVIDERS: ATTEND Registered Nurse
DX: E66.9 Obesity, unspecified (principal)

== ENCOUNTER → 2025-05-18 | Outpatient (CLI) | payer OTHER ==
[~2025-05-18] MED LIST changes: -IBUP-1022 PO; +IBUP600T42 PO
== END ==
LOC: M PLAIMG 14:25
PROVIDERS: ATTEND Registered Nurse
DX: Z82.49 Family history of ischemic heart disease and other diseases of the circulatory system (principal)